=== PATIENT | female | born 1940 | race Hispanic/Latino ===

== ENCOUNTER → 2022-10-09 | Outpatient (CLI) | payer OTHER | END | disposition home or self-care (01) | LOC: RAH 13:17 | PROVIDERS: ATTEND Internal Medicine | DX: S22.008A Other fracture of unspecified thoracic vertebra, initial encounter for closed fracture (principal); X58.XXXA Exposure to other specified factors, initial encounter; Y93.89 Activity, other specified; Y92.89 Other specified places as the place of occurrence of the external cause; Y99.8 Other external cause status | CPT/HCPCS: 71250 ==

== ENCOUNTER → 2022-10-23 | Outpatient (CLI) | payer OTHER | END | disposition home or self-care (01) | LOC: RAH 14:49 | PROVIDERS: ATTEND Internal Medicine | DX: I07.1 Rheumatic tricuspid insufficiency (principal); M34.9 Systemic sclerosis, unspecified | CPT/HCPCS: 93306 ==

== ENCOUNTER → 2024-02-23 | Outpatient (CLI) | payer OTHER ==
--- NOTE | 2024-02-23 15:45 | HMCSR ---
APPROVED REPORT EXAM: Two-dimensional and M-mode echocardiogram with Doppler and color Doppler. INDICATION ICD: i67.9, r06.00 2D Dimensions RVDd3.3 cmLVEF(%)62.1 (>50%)LVED Vol(simp.)58.0 mL IVSd0.9 (0.7-1.1cm)FS(%)33 %LVES Vol(simp.)22.0 mL LVDd3.5 (3.8-5.6cm)LA (2D)2.9 (1.6-4.0cm)LVEF(%, simp.)62 % PWd0.9 (0.7-1.1cm)Ao Root(2D)2.6 (2.0-3.7cm)LA ESV INDEX (BP)23.33 mL/m2 LVDs2.4 (2.5-4.0cm)LVOT diam2.0 (1.8-2.4cm) IVC diam1.4 cm M-Mode Dimensions LA (MM)3.4 (1.6-4.0cm) Ao Root(MM)2.9 (2.0-3.7cm) Aortic Valve AoV Vmax1.1 m/Leonel Peak GR4.6 mmHgLVOT Vmax0.8 m/s AoV VTI0.2 mAo Mean GR2.5 mmHgLVOT VTI0.20 m JENNIFER (VMAX)2.9 cm2Al P1/2T763 msAVA (VTI) 2.9 cm2 Mitral Valve MV E Vmax59.3 cm/sDECEL Vslb526 ms MV A Vmax89.8 cm/sP 1/2 T80 ms E/A ratio0.7MVA (PHT)2.8 cm2 MR Max PG80 mmHg TDI E/E' Qrmzii04.8E/E' Lateral7.2 Pulmonary Valve PV Vmax0.7 m/sPV VTI0.15 mPV Mean GR1 mmHg PV Peak GR2.1 mmHgPI End Shira. Faraz 0.9 cm/s Tricuspid Valve TR Vmax2.8 m/sRAP (EST) 3 hoZsGNDD58.9 mmHg TR Peak GR30.9 mmHg Left Ventricle Left ventricular cavity is small. There is normal LV segmental wall motion. There is normal left vent ricular wall thickness. LVEF is 60-65%. The left ventricular diastolic function is normal. Right Ventricle The right ventricle is normal size. The right ventricular systolic function is normal. Atria The left atrium size is normal. The atrial septum is aneurysmal. The right atrium appears mildly dila minnie. Prominent Eustachian valve is noted in the right atrium. Aortic Valve Aortic valve is trileaflet. Aortic valve leaflets are sclerotic but open well. Trace aortic regurgita tion. There is no aortic valvular stenosis. Mitral Valve Mitral valve leaflets are sclerotic but open well. Mitral regurgitation is trace. There is no mitral valve stenosis. Tricuspid Valve The tricuspid valve leaflets appear normal. There is moderate tricuspid regurgitation. Right ventricu lar systolic pressure is estimated at 30-40 mmHg. Pulmonic Valve The pulmonic valve leaflets are thin and pliable; valve motion is normal. There is trace pulmonic ken vular regurgitation. Great Vessels The aortic root is normal in size. The IVC is normal in size and collapses >50% with inspiration. Pericardium No pericardial effusion. Other Information Quality : GoodRhythm : NSR Conclusion LVEF is 60-65%. The left ventricular diastolic function is normal. The atrial septum is aneurysmal. Trace aortic regurgitation. Mitral valve leaflets are sclerotic but open well. Mitral regurgitation is trace. There is moderate tricuspid regurgitation. Right ventricular systolic pressure is estimated at 30-40 mmHg. Prominent Eustachian valve is noted in the right atrium.
--- NOTE | 2024-02-24 09:06 | HMCSR ---
APPROVED REPORT Laterality: Bilateral VELOCITY AND DOPPLER WAVEFORM ANALYSIS CONVEYOR MAINTENANCE MECHANIC (R) 156.8cm/sec, Biphasic, CONVEYOR MAINTENANCE MECHANIC (L) 91.1cm/sec, Biphasic, Prof Fem Art. (R) 58.6cm/sec, Biphasic, Prof Fem Art. (L) 58.0cm/sec, Biphasic, Fem Art Prox. (R) 94.4cm/sec, Biphasic, Fem Art Prox. (L) 81.4cm/sec, Biphasic, Fem Art Mid. (R) 77.4cm/sec, Biphasic, Fem Art Mid. (L) 78.7cm/sec, Biphasic, Fem Art Dist (R) 77.4cm/sec, Biphasic, Fem Art Dist. (L) 56.6cm/sec, Biphasic, Pop Art(AK) (R) 62.1cm/sec, Biphasic, Pop Art (AK) (L) 63.7cm/sec, Biphasic, Pop Art (Fossa)(R) 59.4cm/sec, Biphasic, Pop Art (Fossa) (L) 55.6cm/sec, Biphasic, Pop Art(BK) (R) 66.3cm/sec, Biphasic, Pop Art (BK) (L) 51.1cm/sec, Biphasic, SENIOR SOLUTIONS ENGINEER Prox. (R) 34.1cm/sec, Biphasic, SENIOR SOLUTIONS ENGINEER Prox. (L) cm/sec, Occluded, SENIOR SOLUTIONS ENGINEER Mid. (R) 27.8cm/sec, Monophasic, SENIOR SOLUTIONS ENGINEER Mid. (L) cm/sec, Occluded, SENIOR SOLUTIONS ENGINEER Dist. (R) cm/sec, Occluded, SENIOR SOLUTIONS ENGINEER Dist. (L) cm/sec, Occluded, Per Art Dist. (R) 46.7cm/sec, Biphasic, Per Art Dist. (L) 41.3cm/sec, Biphasic, NOAH Prox. (R) 59.4cm/sec, Biphasic, NOAH Prox. (L) 81.0cm/sec, Biphasic, NOAH Mid. (R) 59.4cm/sec, Biphasic NOAH Mid. (L) 74.1cm/sec, Biphasic, NOAH Dist. (R) 84.2cm/sec, Biphasic, NOAH Dist. (L) 70.6cm/sec, Biphasic, Technologist Impression Diffuse atherosclerosis throughout the bilateral lower extremities. The right posterior tibial artery appears occluded distally. The left posterior tibial artery appears occluded. Conclusion Occluded left Posterior Tibial. Distal occlusion of Right Posterior Tibial. Conclusion Occluded left Posterior Tibial. Distal occlusion of Right Posterior Tibial.
== END | disposition home or self-care (01) ==
LOC: SHCH 09:46
PROVIDERS: ATTEND Internal Medicine
DX: I08.3 Combined rheumatic disorders of mitral, aortic and tricuspid valves (principal); I70.293 Other atherosclerosis of native arteries of extremities, bilateral legs; I25.3 Aneurysm of heart; R06.00 Dyspnea, unspecified
CPT/HCPCS: 93306; 93925

== ENCOUNTER → 2024-07-04 | Outpatient (CLI) | payer OTHER ==
[~2024-07-04] MED LIST: REGADENOSON 0.4 MG/5 ML PF SYG IVP ONE
--- NOTE | 2024-07-05 16:46 | HMCSR ---
APPROVED REPORT Height: 4 ft 9in Weight: 101 lbs TEST INDICATIONS Shortness of Breath The imaging protocol used to acquire images was Rest Tc-99m/stress Tc-99m 1 day Consent: The procedure was explained and understood by the patient. Informerd consent was witnessed Escobar Wray RN First, low dose rest was performed then high dose stress. RESTING DATA: The resting ekg shows: NSR Rest SPECT myocardial perfusion imaging was performed in supine position minutes following the intra venous injection of 11 mCi of Tc-99 Sestamibi. Time of rest injection: 09:20: Date: 07/04/2024 PHARMACOLOGIC STRESS: Pharmacologic stress test was performed by injecting regadenoson 0.4 mg IV push followed by the intra venous injection of 27 mCi of Tc-99 Sestamibi. Time of stress injection: 10:44: Date: 07/04/2024 Heart Rate at time of stress injection: 84 bpm. The images were gated to evaluate regional wall motion and calculate left ventricular ejection fracti on. STRESS DETAILS Reason for Termination: Infusion complete Stress Symptoms: No chest pain or symptoms Max HR Achieved: 99 bpm % of APMHR Achieved: 85 Max Blood Pressure: 139/56 mmHg Stress ECG: NSR Study quality was fair. Lung uptake was Normal. Artifact: breast and diaphragmatic artifact LEFT VENTRICLE Size: The left ventricular size is small. Systolic Function:The left ventricular systolic function is hyperdynamic. Wall Motion: No regional wall motion abnormalities noted. The left ventricular ejection fraction was calculated to be 87%.TID = 2.60. LV PERFUSION There appears to be normal perfusion noted throughout the myocardium on the rest and stress images al though the slice images seemed to be acquired incorrectly and I do not see any evidence of reversible ischemia There was no evidence of infarct It should be noted that LV volumes are extremely small Conclusion Probably normal myocardial perfusion scan with no evidence of reversible ischemia in a hyperdynamic L VEF of greater than 80% Significantly small volumes noted of the left ventricle likely contributing to elevated transient isc hemic dilatation ratio and hyperdynamic EF No evidence of infarct Consider imaging modality for further risk stratification of coronary atherosclerosis to include benoit nary CT angiography versus dobutamine echocardiography
== END | disposition home or self-care (01) ==
LOC: SHCH 08:35
PROVIDERS: ATTEND Internal Medicine
DX: I25.10 Atherosclerotic heart disease of native coronary artery without angina pectoris (principal); R06.02 Shortness of breath; J98.6 Disorders of diaphragm
CPT/HCPCS: 78452; 93017; J2785; A9500 ×2

== ENCOUNTER → 2024-07-18 | Outpatient (CLI) | payer OTHER ==
--- NOTE | 2024-07-18 15:23 | HMCIMG ---
NM GASTRIC EMPTYING STUDY REASON: Abnormal findings on diagnostic imaging of other parts of digestive tract. COMPARISON: None TECHNIQUE: Nuclear gastric emptying study was performed with 1.5 mCi of technetium sulfur colloid with scrambled eggs through oral route. FINDINGS: T half of gastric emptying is abnormal at 119 minutes. IMPRESSION: Abnormal gastric emptying at T half of 119 minutes.
== END | disposition home or self-care (01) ==
LOC: RAH 10:00
PROVIDERS: ATTEND Internal Medicine Gastroenterology
DX: R93.3 Abnormal findings on diagnostic imaging of other parts of digestive tract (principal); R68.81 Early satiety
CPT/HCPCS: 78264; A9541